=== PATIENT | male | born 1955 | race Caucasian/White ===

== ENCOUNTER 2025-07-27 09:44 | Day surgery (SDC) | payer MEDICARE ==
[2025-07-27] MEDS ORDERED: CEFAZOLIN SODIUM ONE (09:47)
[2025-07-27] MEDS ORDERED: Lactated Ringers 500 ML IV ONE (09:47)
[2025-07-27 10:02] VITALS: TEMP 98.4
[2025-07-27] MEDS: Lactated Ringers 500 ML IV SCH (10:13)
[2025-07-27] MEDS ORDERED: XYLOCAINE 1% HCL 20 ML MDV ONE ×2 (10:39→11:25)
[2025-07-27] MEDS ORDERED: Sensorcaine 0.25% 10 ML ONE (11:25)
[2025-07-27 12:39] VITALS: BP 149/80; PULSE 60; RESP 16; O2SAT 96
--- NOTE | 2025-07-31 11:03 | OP ---
SURGERY DATE/TIME: 07/27/2025 [id number] PREOPERATIVE DIAGNOSIS: Symptomatic back cyst. POSTOPERATIVE DIAGNOSIS: Symptomatic back cyst and adjacent nevus. PROCEDURES: 1) Excision of back lesion, 9.5 x 3 cm down to fascia and not including fascia. 2) Adipo-cutaneous advancement flaps, 9 x 2 cm, x2, a total of 36 sq cm. SURGEON: Elio Smith MD ANESTHESIA: Local. CONDITION: Stable. COMPLICATIONS: None. SPECIMENS: Back lesion. INDICATIONS: Patient is a 69-year-old male who has this back cyst that flared up, got infected, drained, and is bothersome. Since then, though not actively infected. Discussed with patient options of observation versus excision. Risk of that is having an open wound infection, bleeding, scarring, cosmetic deformity, and he elected to proceed with excision. FINDINGS: As below. DESCRIPTION OF PROCEDURE AND FINDINGS: Patient was brought to the operating room. Routinely positioned prone. Prepped and draped. Time-out performed. The patient was marked preoperatively, though he was awake and consents with the time-out, that this is at the midback, that it is with some active sebaceous drainage, but the area is about 2 cm, that it is going to require about a 3 cm area of just over 2.5 cm, so it is going to require a 3 cm wide excision, and then there is an adjacent 1 cm nevus with a little irregularity to the coloring, so that is included in that ellipse. It ends up being a 9.5 x 3 cm ellipse that is localized with lidocaine/Marcaine mixture, 50 mL total given. Skin and subcutaneous incised. The cyst was excised in its entirety. This goes down to the fascia, does not violate the fascia. There is good hemostasis. The stitch had been placed medial for orientation of the specimen. For adequate tension-free closure, adipo-cutaneous flaps, 2 cm inferiorly, superiorly, had to be raised. At that point, there is a tension-free closure. A vessel loop is placed as a loop drain and secured with 0 silk ties, and then the skin is reapproximated with interrupted 2-0 nylon sutures. That is all hemostatic and satisfactory. Dressing applied. Patient tolerated the procedure well and taken to recovery in stable condition.
== END 2025-07-27 12:45 | disposition home or self-care (01) ==
LOC: EDBD → MERGE 09:44 → SDC 09:44
PROVIDERS: ATTEND Surgery
DX: L72.0 Epidermal cyst (principal); D22.5 Melanocytic nevi of trunk; Z79.899 Other long term (current) drug therapy